=== PATIENT | female | born 1995 | race Two or more races ===

== ENCOUNTER 2018-01-16 02:45 | Inpatient (IN) | payer OTHER, MEDICAID ==
[2018-01-16 03:23] LABS: APPEARANCE,URINE CLEAR; BILIRUBIN,URINE NEGATIVE (NEGATIVE); COLOR,URINE YELLOW; GLUCOSE, URINE NEGATIVE (NEGATIVE); KETONES,URINE NEGATIVE (NEGATIVE); LEUKOCYTE ESTERASE,URINE NEGATIVE (NEGATIVE); NITRITE,URINE NEGATIVE (NEGATIVE); PROTEIN,URINE NEGATIVE (NEGATIVE); URINE SPECIFIC GRAVITY 1.008; UROBILINOGEN,URINE NEGATIVE mg/dL (<2.0)
[2018-01-16] MEDS ORDERED: LIDOCAINE 1% INJ-PF (10 MG/ML) 30 ML SDV ONE (03:26)
[2018-01-16] MEDS ORDERED: OXYTOCIN 10 UNIT/ML VIAL ONE (03:26)
[2018-01-16] MEDS ORDERED: MISOPROSTOL 0.2 MG TABLET ONE (03:26)
[2018-01-16] MEDS ORDERED: OXYTOCIN/NORMAL SALINE 20 UNIT/1,000 ML RTUINJ ONE (03:26)
[2018-01-16] MEDS ORDERED: RINGERS SOLUTION,LACTATED 1,000 ML IV PRN (03:49)
[2018-01-16 03:50] LABS: URINE AMPHETAMINES SCREEN NEGATIVE; URINE BARBITURATES SCREEN NEGATIVE; URINE BENZODIAZEPINES SCREEN NEGATIVE; URINE COCAINE SCREEN NEGATIVE; URINE MARIJUANA (THC) SCREEN NEGATIVE; URINE METHADONE SCREEN NEGATIVE; URINE PHENCYCLIDINE SCREEN NEGATIVE
[2018-01-16 05:03] LABS: ABSOLUTE EOSINOPHILS # (AUTO) 0.1 10^3/uL (0.0-0.6); ABSOLUTE LYMPHOCYTES (AUTO) 1.7 10^3/uL (0.5-4.7); ABSOLUTE MONOCYTES (AUTO) 0.5 10^3/uL (0.1-1.4); BASOPHILS % (AUTO) 0.3 % (0-2); EOSINOPHILS % (AUTO) 0.9 % (0-6); HEMATOCRIT 30.9 % (36.0-47.0); HEMOGLOBIN 11.3 g/dL (12.0-15.5); LYMPHOCYTES % (AUTO) 18.6 % (13-45); MEAN CORPUSCULAR HEMOGLOBIN 32.1 pg (27.0-33.4); MEAN CORPUSCULAR HGB CONC 36.4 g/dL (32.0-36.0); MEAN CORPUSCULAR VOLUME 88 fl (80-97); MONOCYTES % (AUTO) 5.7 % (3-13); PLATELET COUNT 171 10^3/uL (150-450); RED BLOOD COUNT 3.51 10^6/uL (3.72-5.28); RED CELL DISTRIBUTION WIDTH 13.2 % (11.5-14.0); SEGMENTED NEUTROPHILS % (AUTO) 74.5 % (42-78); TOTAL CELLS COUNTED % (AUTO) 100 %; WHITE BLOOD COUNT 9.4 10^3/uL (4.0-10.5)
[2018-01-16] MEDS ORDERED: PROMETHAZINE HCL INJ 25 MG/1 ML VIAL ONE ×2 (06:32→08:49)
[2018-01-16] MEDS ORDERED: NALBUPHINE HCL INJ 10 MG/1 ML AMPULE ONE ×2 (06:32→08:49)
[2018-01-16] MEDS ORDERED: PROMETHAZINE HCL INJ 25 MG/1 ML VIAL IV ONE (06:41)
[2018-01-16] MEDS ORDERED: NALBUPHINE HCL INJ 10 MG/1 ML AMPULE INJ ONE (06:41)
[2018-01-16] MEDS ORDERED: ACETAMINOPHEN 650 MG SUPP.RECT PR PRN (10:58)
[2018-01-16] MEDS ORDERED: GLYCERIN/WITCH HAZEL LEAF 1 EACH MED..PAD TP PRN (10:58)
[2018-01-16] MEDS ORDERED: DIPH/PERTUSS(ACELL)/TETANUS VAC/PF 0.5 ML SYR (>=10YO) IM PRN (10:58)
[2018-01-16] MEDS ORDERED: DIBUCAINE 1% OINTMENT 28 GM TP PRN (10:58)
[2018-01-16] MEDS ORDERED: ZOLPIDEM TARTRATE 5 MG TABLET PO PRN (10:58)
[2018-01-16] MEDS ORDERED: PROMETHAZINE HCL 25 MG TABLET PO PRN (10:58)
[2018-01-16] MEDS ORDERED: DIPHENHYDRAMINE HCL 25 MG CAPSULE PO PRN (10:58)
[2018-01-16] MEDS ORDERED: MAGNESIUM HYDROXIDE SUSP 30 ML UDCUP PO PRN (10:58)
[2018-01-16] MEDS ORDERED: MEASLES,MUMPS&RUBELLA VACC/PF 0.5 ML VIAL SUBCUT PRN (10:58)
[2018-01-16] MEDS ORDERED: PSEUDOEPHEDRINE HCL 30 MG TABLET PO PRN (10:58)
[2018-01-16] MEDS ORDERED: ACETAMINOPHEN WITH CODEINE #3 TABLET PO PRN ×2 (10:58)
[2018-01-16] MEDS ORDERED: PROMETHAZINE HCL 25 MG SUPP.RECT PR PRN (10:58)
[2018-01-16] MEDS ORDERED: NA PHOS,M-B/NA PHOS,DI-BA (ADULT) 133 ML ENEMA PR PRN (10:58)
[2018-01-16] MEDS ORDERED: PROMETHAZINE HCL INJ 25 MG/1 ML VIAL IV PRN (10:58)
[2018-01-16] MEDS ORDERED: OXYTOCIN/NORMAL SALINE 1,000 ML IV PRN (10:58)
--- NOTE | 2018-01-16 12:33 | Delivery Summary ---
Del Sum A-C Datetime Report Generated by CPN: 01/16/2018 12:33 DELIVERY PERSONNEL DELIVERY PERSONNEL: [id number] Delivery Doctor:: Yusuf Calvillo MD Labor and Delivery Nurse:: Vita Saba RNoutside laborer Nurse:: CLAIR Pinto Church Musician:: CrystalFelton Lui RN MATERNAL INFORMATION Delivery Anesthesia: None Medications After Delivery: Pitocin Drip 20 Units/1000ml NSS Estimated Blood Loss (ml): 250 Maternal Complications: None LABOR SUMMARY EDC: 01/12/2018 00:00 No. Babies in Womb: 1 Attempted: No Labor Anesthesia: IV Sedation LABOR INFORMATION Reason for Induction: Not Applicable Onset of Labor: 01/16/2018 02:00 Complete Dilatation: 01/16/2018 10:03 Oxytocin: N/A Group B Beta Strep: negative Antibiotics # of Doses: 0 Antibiotics Time of Last Dose: n/a Name of Antibiotic Given: n/a Steroids Given: None Reason Steroids Not Administered: Not Applicable MEMBRANES Membranes Rupture Method: Spontaneous Rupture of Membranes: 01/16/2018 02:00 Length of Rupture (hr): 8.23 Amniotic Fluid Color: Clear Amniotic Fluid Amount: Small Amniotic Fluid Odor: Normal STAGES OF LABOR Stage 1 hr: 8 Stage 1 min: 3 Stage 2 hr: 0 Stage 2 min: 11 Stage 3 hr: 0 Stage 3 min: 7 Total Time in Labor hr: 8 Total Time in Labor min: 21 VAGINAL DELIVERY Laceration #1: Perineal Laceration Extension #1: Second Degree Laceration #2: Vaginal Laceration Extension #2: N/A Laceration #3: Vaginal Laceration Extension #3: N/A Other Laceration: Bilateral labial Laceration Repair: Yes Laceration Repair Note: Repair in usual fashion with 3-0 chromic suture. Sponge Count Correct: Vaginal Sweep Performed Sharps Count Correct: Yes CSECTION DELIVERY Primary Indication: N/A Secondary Indication: N/A CSection Incidence: N/A Labor: N/A Elective: N/A CSection Incision: N/A BABY A INFORMATION Infant Delivery Date/Time: 01/16/2018 10:14 Method of Delivery: Vaginal Born in Route : No : N/A Forceps: N/A Vacuum Extraction: N/A Shoulder Dystocia : No PRESENTATION/POSITION BABY A Presentation: Cephalic Cephalic Presentation: Vertex Vertex Position: Left Occipital Anterior Breech Presentation: N/A PLACENTA INFORMATION BABY A Placenta Delivery Time : 01/16/2018 10:21 Placenta Method of Delivery: Spontaneous Placenta Status: Delivered SCORES BABY A Heart Rate 1 min: >100 bpm Resp Effort 1 min: Good Cry Reflex Irritability 1 min: Cough or Sneeze or Pulls Away Muscle Tone 1 min: Active Motion Color 1 min: Body [place], Extremities Blue Resuscitation Effort 1 min: Tactile Stimulation SCORE 1 MIN: 9 Heart Rate 5 min: >100 bpm Resp Effort 5 min: Good Cry Reflex Irritability 5 min: Cough or Sneeze or Pulls Away Muscle Tone 5 min: Active Motion Color 5 min: Body [place], Extremities Blue Resuscitation Effort 5 min: Tactile Stimulation SCORE 5 MIN: 9 INFORMATION BABY A Gestational Age at Delivery: 40.4 Gestational Status: Full Term- 39- 40.6 Weeks Outcome : Liveborn Infant Condition : Stable Infant Sex: Female IDENTIFICATION BABY A Verification Date/Time: 01/16/2018 11:19 ID Band Number: [id number] Mother's Name Verified: Yes Infant RN Verifying : B Baidy RN Additional Verifying Personnel: Nehemiah Matute RN WEIGHT/LENGTH BABY A Birthweight (gm): 3010 Weight (lb): 6 Weight (oz): 10 Length (in): 20.25 Infant Length (cm): 51.44 CORD INFORMATION BABY A No. Cord Vessels: 3 Nuchal Cord : N/A Cord Blood Taken: Yes-For Storage (Mom's Blood type +) Suction: None ASSESSMENT BABY A Complications: None Physical Findings at Delivery: Within Normal Limits Skin to Skin: Yes Renderer/ALS Called : No Care By: D Bellavance RN Transferred To: Remains with Mother BABY B INFORMATION : N/A SIGNATURES Signature: with User ID: [email or web address]
[2018-01-16] MEDS: BENZOCAINE/MENTHOL AEROSOL SPRAY 56 ML TOP PRN (17:14)
[2018-01-16] MEDS: DOCUSATE SODIUM 100 MG CAPSULE PO SCH (17:15)
[2018-01-16] MEDS: FERROUS SULFATE 325 MG TABLET PO SCH (17:15)
[2018-01-16] MEDS: IBUPROFEN 800 MG TABLET PO SCH ×2 (18:07→21:51)
[2018-01-16] MEDS: FAMOTIDINE 20 MG TABLET PO SCH (21:51)
[2018-01-17] MEDS: IBUPROFEN 800 MG TABLET PO SCH ×3 (06:14→22:08)
[2018-01-17 07:40] LABS: HEMATOCRIT 28.1 % (36.0-47.0); HEMOGLOBIN 9.9 g/dL (12.0-15.5); MEAN CORPUSCULAR HEMOGLOBIN 31.5 pg (27.0-33.4); MEAN CORPUSCULAR HGB CONC 35.4 g/dL (32.0-36.0); MEAN CORPUSCULAR VOLUME 89 fl (80-97); PLATELET COUNT 177 10^3/uL (150-450); RED BLOOD COUNT 3.16 10^6/uL (3.72-5.28); RED CELL DISTRIBUTION WIDTH 13.3 % (11.5-14.0); WHITE BLOOD COUNT 12.8 10^3/uL (4.0-10.5)
[2018-01-17] MEDS: DOCUSATE SODIUM 100 MG CAPSULE PO SCH ×2 (10:08→17:14)
[2018-01-17] MEDS: SENNOSIDES/DOCUSATE 8.6-50 MG 1 EACH TABLET PO SCH (10:08)
[2018-01-17] MEDS: PRENATAL VITAMIN W DHA CAPSULE PO SCH (10:08)
[2018-01-17] MEDS: FERROUS SULFATE 325 MG TABLET PO SCH ×2 (10:08→17:14)
[2018-01-17] MEDS: FAMOTIDINE 20 MG TABLET PO SCH ×2 (10:08→22:07)
--- NOTE | 2018-01-17 12:48 | PDOC PROGRESS REPORT ---
Subjective-OB Progress Note for:: 01/17/18 Subjective: reports pain controlled with current meds, bleeding slowing, denies needs Physical Exam (OB) Vital Signs: Temp Pulse Resp BP Pulse Ox 98.3 F 69 16 119/78 97 01/17/18 09:02 01/17/18 09:02 01/17/18 09:02 01/17/18 09:02 01/17/18 09:02 Intake & Output 01/16/18 01/17/18 01/18/18 06:59 06:59 06:59 Intake Total 501 Balance 501 Weight 78.925 kg - Abdomen Description: Soft, Flat Hernia Present: No Fundal Description: Firm, Midline Fundal Height: u/u - u/2 - Abdominal Distension: No distension Tenderness: Nontender - Extremities Lower extremities: Monty's sign - neg Calf: Normal, Nontender Objective-Diagnostic Laboratory: 01/17/18 07:20 01/17/18 07:20 WBC 12.8 H RBC 3.16 L Hgb 9.9 L Hct 28.1 L MCV 89 MCH 31.5 MCHC 35.4 RDW 13.3 Plt Count 177 Assessment and Plan(PN) - Assessment and Plan (1) Normal vaginal delivery Is this a current diagnosis for this admission?: Yes - Time Spent with Patient Time with patient: Less than 15 minutes Medications reviewed and adjusted accordingly: Yes - Disposition Anticipated Discharge: Home Within: within 24 hours
[2018-01-17] MEDS: BENZOCAINE/MENTHOL AEROSOL SPRAY 56 ML TOP PRN (22:10)
[2018-01-18] MEDS: IBUPROFEN 800 MG TABLET PO SCH ×2 (05:18→13:18)
[2018-01-18] MEDS: FAMOTIDINE 20 MG TABLET PO SCH (09:13)
[2018-01-18] MEDS: PRENATAL VITAMIN W DHA CAPSULE PO SCH (09:13)
[2018-01-18] MEDS: FERROUS SULFATE 325 MG TABLET PO SCH (09:13)
[2018-01-18] MEDS: SENNOSIDES/DOCUSATE 8.6-50 MG 1 EACH TABLET PO SCH (09:13)
[2018-01-18] MEDS: DOCUSATE SODIUM 100 MG CAPSULE PO SCH (09:13)
[2018-01-18 11:11] VITALS: BP 123/80
--- NOTE | 2018-01-18 15:23 | PDOC DISCHARGE SUMMARY ---
Final Diagnosis Discharge Date: 01/18/18 Discharge Data - Discharge Medication Prescriptions: Docusate Sodium [Colace 100 mg Capsule] 100 mg PO BID #60 capsule Ibuprofen [Motrin 800 mg Tablet] 800 mg PO Q8 #60 tablet Home Medications: Docusate Sodium [Colace 100 mg Capsule] 100 mg PO BID #60 capsule 01/18/18 Ibuprofen [Motrin 800 mg Tablet] 800 mg PO Q8 #60 tablet 01/18/18 Reason(s) for Admission: Onset of Labor Intrapartum Procedure(s): Spontaneous Vaginal Delivery - Diagnosis Test Laboratory: Temp Pulse Resp BP Pulse Ox 97.9 F 74 16 123/80 98 01/18/18 10:58 01/18/18 10:58 01/18/18 10:58 01/18/18 10:58 01/18/18 10:58 01/16/18 01/16/18 01/17/18 02:48 04:13 07:20 RBC 3.51 L 3.16 L Hgb 11.3 L 9.9 L Hct 30.9 L 28.1 L Urine Opiates Screen NEGATIVE - Discharge information/Instructions Discharge Activity: Activity As Tolerated, No Lifting Over 10 Pounds, No Lifting /Push/Pulling, No tub bath Discharge Diet: As Tolerated Disposition: HOME, SELF-CARE Follow up with: [facility] in: 4, Weeks
== END 2018-01-18 16:30 | disposition home or self-care (01) | DRG 807 ==
LOC: LC 02:45 → LR 03:14 → 2S 12:17
PROVIDERS: ADMIT Obstetrics & Gynecology; ATTEND Obstetrics & Gynecology
PROC: 10E0XZZ Delivery of Products of Conception, External Approach (ICD-10-PCS; principal; 2018-01-16)
PROC: 0KQM0ZZ Repair Perineum Muscle, Open Approach (ICD-10-PCS; 2018-01-16)
PROC: 4A1HXCZ Monitoring of Products of Conception, Cardiac Rate, External Approach (ICD-10-PCS; 2018-01-16)
PROC: 3E02340 Introduction of Influenza Vaccine into Muscle, Percutaneous Approach (ICD-10-PCS; 2018-01-18)
DX: O70.1 Second degree perineal laceration during delivery (principal); Z34.83 Encounter for supervision of other normal pregnancy, third trimester; Z23 Encounter for immunization; Z3A.40 40 weeks gestation of pregnancy; Z37.0 Single live birth
CPT/HCPCS: 36415; 80307; 81005; 85025; 85027; 86592; 86850; 86900; 86901; 90471; 90686; G0008; J2300; J2550; J2590; J3490

== ENCOUNTER 2019-12-13 08:45 | Day surgery (SDC) | payer OTHER, MEDICAID ==
[~2019-12-13 08:45] MED LIST: BACITRACIN INJ 50,000 UNIT VIAL ONE; BUPIVACAINE INJ/PF LIPOSOME/PF 266 MG/20 ML SDV ONE; NORMAL SALINE INJ/PF 0.9% 10 ML SDV ONE; POLYMYXIN B SULFATE INJ 500000 UNIT VIAL ONE
[2019-12-13] MEDS ORDERED: MIDAZOLAM 2 MG/2 ML INJ ONE (09:49)
[2019-12-13] MEDS ORDERED: LIDOCAINE 2% INJ (20 MG/ML) 20 ML MDV ONE (09:50)
[2019-12-13] MEDS ORDERED: BUPIVACAINE HCL 0.5 % INJ/PF 30 ML SDV ONE (09:50)
[2019-12-13] MEDS ORDERED: MORPHINE SULFATE 10 MG/ML INJ ONE (09:50)
[2019-12-13] MEDS ORDERED: PROPOFOL INJ 200 MG/20 ML VIAL IV ONE (09:50)
[2019-12-13] MEDS ORDERED: DEXAMETHASONE SOD PHOSPHATE INJ 4 MG/1 ML VIAL ONE (11:15)
--- NOTE | 2019-12-13 11:58 | Operative Report ---
Operative Report DATE OF SURGERY: 12/13/19 PREOPERATIVE DIAGNOSIS: Bunion right foot. POSTOPERATIVE DIAGNOSIS: Same. OPERATION: Simple bunionectomy right foot. SURGEON: KYRIE PATTERSON CLOTH NAPPING SUPERVISOR: MARION MCKENNA ANESTHESIA: LMAC COMPLICATIONS: None. ESTIMATED BLOOD LOSS: Less than 0.5 mL. PROCEDURE: Patient was taken the operating, then following induction of intravenous sedation and injection of local anesthesia, the right foot and leg were prepped and draped in a sterile manner. Attention was directed to the dorsal aspect of the first metatarsophalangeal joint where a 3 cm linear incision was placed medial to the long extensor tendon. The incision was deepened through the subcutaneous tissues superficial fascia, all bleeding vessels were ligated and bovied as necessary for hemostasis. The long extensor tendon was identified and retracted laterally for preservation. Incision was made in the capsular periosteal structures in similar fashion the skin incision. Capsule was reflected for preservation thus bringing into view the hypertrophied dorsal aspect of the first metatarsal head and the hypertrophied medial aspect of the first metatarsal head. Utilizing reciprocating saw the hypertrophy portions of bone were osteotomized and removed in toto. Utilizing a reciprocating head with a cross cut type rasp all sharp osseous edges were rasped smooth. The articular surface was examined and noted to be free of any cartilaginous erosions. There is a prominence of bone on the dorsal base of the proximal phalanx was then reduced with hand-held and power instrumentation. All sharp osseous edges on both sides of the joint were then rasped smooth. The joint was placed through range of motion was noted to be free of crepitus, binding, clicking and had an excellent range of motion. Is felt the is concluded the bony portion of the procedure. At that time the wound was flushed with copious amounts of sterile antibiotic solution and inspected for any soft tissue or osseous debris within being noted. Bone wax was then applied to all exposed bony surfaces. The capsular periosteal structures then coapted and maintained with simple suture of 3-0 Vicryl. At that time the long extensor tendon was freed from its surrounding soft tissue attachments along the course extending as far proximal and distal as possible. The tendon was transposed more midline position, and the peritenon was then sutured to the medial aspect of the first metatarsal phalangeal joint capsule with 3-0 Vicryl. This rerouted the long extensor tendon to more midline position and gave a better cosmetic appearance to the position of the great toe. The subcutaneous tissue was coapted maintained with simple suture of 4-0 Vicryl. The skin incision was then closed with a running subcuticular suture of 5-0 Vicryl. Steri-Strips were applied. 1 cc of dexamethasone was then injected into the periwound area. Sterile dressing consisting stahl silk, 4 x 4's, Conform, Kerlix and Coban was applied to the right foot. The tourniquet was rapidly deflated, capillary filling was instantaneous to All Digits. A fiberglass toe shield was fabricated and then applied to the distal aspect of the patient's right foot. Patient tolerated the surgery and anesthesia well and was taken recovery room further monitored by a des.
--- NOTE | 2019-12-13 13:24 | RADIOLOGY REPORT (SQ) ---
EXAM DESCRIPTION: NO CHG FLUORO; FOOT RIGHT 2 VIEWS IMAGES COMPLETED DATE/TIME: 12/13/2019 12:58 pm REASON FOR STUDY: RIGHT BUNIONECTOMY COMPARISON: None. FLUOROSCOPY TIME: 5 seconds 2 Images saved to PACS LIMITATIONS: None. PROCEDURE: Right bunionectomy FINDINGS: Images from fluoro document the procedure. IMPRESSION: Right bunionectomy. Refer to operative note for further information. COMMENT: PQRS 6045F: Fluoroscopy time of the procedure is documented in the report. TECHNICAL DOCUMENTATION: JOB ID: [id number] 2010 [employer]- All Rights Reserved Reading location - IP/workstation name: [email or web address]
--- NOTE | 2019-12-13 13:24 | RADIOLOGY REPORT (SQ) ---
EXAM DESCRIPTION: NO CHG FLUORO; FOOT RIGHT 2 VIEWS IMAGES COMPLETED DATE/TIME: 12/13/2019 12:58 pm REASON FOR STUDY: RIGHT BUNIONECTOMY COMPARISON: None. FLUOROSCOPY TIME: 5 seconds 2 Images saved to PACS LIMITATIONS: None. PROCEDURE: Right bunionectomy FINDINGS: Images from fluoro document the procedure. IMPRESSION: Right bunionectomy. Refer to operative note for further information. COMMENT: PQRS 6045F: Fluoroscopy time of the procedure is documented in the report. TECHNICAL DOCUMENTATION: JOB ID: [id number] 2010 [employer]- All Rights Reserved Reading location - IP/workstation name: [email or web address]
== END 2019-12-13 13:00 | disposition home or self-care (01) ==
LOC: SC 08:45
PROVIDERS: ATTEND Preventive Medicine Undersea and Hyperbaric Medicine
DX: M20.11 Hallux valgus (acquired), right foot (principal); M21.611 Bunion of right foot; F17.210 Nicotine dependence, cigarettes, uncomplicated; Z03.818 Encounter for observation for suspected exposure to other biological agents ruled out
CPT/HCPCS: 87635; 73620; 01480; 28292; J2250; J3490 ×5; J1100; J2270; J2704; C9803; C9290